=== PATIENT | female | born 1980 | race American Indian/Alaskan Native ===

== ENCOUNTER 2021-07-12 13:51 | Emergency (ER) | payer SELFPAY ==
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
[2021-07-12] MEDS ORDERED: KETOROLAC 60 MG/2 ML INJ IM ONE (16:27)
[2021-07-12] MEDS ORDERED: dexAMETHasone 4 MG/ML VIAL IM STA (16:27)
[2021-07-12 17:12] VITALS: BP 158/110
== END 2021-07-12 17:17 | disposition home or self-care (01) ==
LOC: ED 13:51
DX: S09.90XA Unspecified injury of head, initial encounter (principal); Y08.89XA Assault by other specified means, initial encounter; Y93.89 Activity, other specified; Y92.89 Other specified places as the place of occurrence of the external cause; Y99.8 Other external cause status
CPT/HCPCS: 96372; 99282; J1100; J1885